=== PATIENT | male | born 1995 | race Caucasian/White ===

== ENCOUNTER 2022-01-15 03:03 | Emergency (ER) | payer MEDICAID ==
[~2022-01-15] VITALS: Ht 177.8 cm; Wt 82.0 kg
[2022-01-15 03:31] LABS: CHLORIDE 104 mEq/L (98-107)
[2022-01-15 03:32] LABS: BASOPHILS % 0.2 % (0.0-2.0); HEMOGLOBIN. 15.8 g/dL (14.0-18.0); LYMPHOCYTES % 9.6 % (20.0-50.0); MEAN CORPUSCULAR HEMOGLOBIN 28.7 pg (28.0-32.0); MEAN CORPUSCULAR VOLUME 85.1 fL (80.0-94.0); MEAN PLATELET VOLUME 8.3 fl (7.4-10.4); MONOCYTES % 9.2 % (2.0-8.0); PLATELET 309 x1000/uL (130-400); RED BLOOD CELL COUNT 5.53 mill/uL (4.7-6.1); RED CELL DISTRIBUTION WIDTH 13.8 % (11.6-14.6)
[2022-01-15 03:38] LABS: ETHANOL BLOOD < 10 mg/dL
[2022-01-15] MEDS ORDERED: LORAZEPAM 2MG/ML CPJ IV SCH (06:30)
[2022-01-15] MEDS: RISPERIDONE 1MG TABLET PO SCH ×2 (09:42→21:34)
[2022-01-15] MEDS ORDERED: LORAZEPAM 2MG/ML CPJ IV ONE (13:30)
[2022-01-15 18:05] LABS: *AMPHETAMINES SCREEN URINE NEGATIVE (NEGATIVE); *BARBITURATES SCREEN URINE NEGATIVE (NEGATIVE); *BENZODIAZEPINES SCREEN URINE NEGATIVE (NEGATIVE); *COCAINE SCREEN URINE NEGATIVE (NEGATIVE); CANNABINOID URINE SCREEN PRESUMTIVE POSITIVE (NEGATIVE); METHADONE URINE SCREEN NEGATIVE (NEGATIVE); OPIATES URINE SCREEN NEGATIVE (NEGATIVE); PHENCYCLIDINE URINE SCREEN NEGATIVE (NEGATIVE)
[2022-01-16] MEDS: RISPERIDONE 1MG TABLET PO SCH (09:13)
[2022-01-16 10:00] VITALS: BP 106/82
== END 2022-01-16 12:02 | disposition home or self-care (01) ==
LOC: ER 03:03
DX: R45.851 Suicidal ideations (principal); R46.1 Bizarre personal appearance; R00.0 Tachycardia, unspecified; Z20.822 Contact with and (suspected) exposure to COVID-19
CPT/HCPCS: 36415; 80053; 80305; 80307; 80320; 80329; 82962; 85025; 93005; 96374; 96376; 99291; C9803; J2060; U0003; U0005; G0480